=== PATIENT | female | born 1960 | race African-American/Black ===

== ENCOUNTER → 2024-02-12 | Outpatient (CLI) | payer MEDICAID ==
[2024-02-12] MEDS: REGADENOSON 0.4 MG/5 ML SYRG IV ONE ×2 (12:56→13:33)
--- NOTE | 2024-02-14 07:43 | DVHSR ---
APPROVED REPORT Exam: Nuclear Stress Test Indication: Cardiac Clearance Stress Tech: Charisse Palacios Ht: 5 ft 9 in Wt: 130 lbs BSA: 1.72 m2 HR: 49 bpm BP: 132/53 mmHg BMI: 19.19 Rhythm: Sinus Bradycardia Medical History Medical History: Hypothyroidism, gastric bypass, right nephrostomy tube, Asthma Allergies: Ibuprofen Stress Test Details Stress Test: Pharmacologic stress testing performed using 0.4 mg of regadenoson per 5 mL given IV ov er 10 seconds. Reason for pharmacologic stress test: Cardiac Clearance. HR Resting HR: 49 bpmMax Heart Rate (APMHR): 158.332883 bpm Max HR Achieved: 76 bpmTarget HR (85% APMHR): 134.676407 bpm % of APMHR: 48.10 Recovery HR: 57 bpm BP Resting BP: 132/53 mmHg Recovery BP: 90/50 mmHg ECG Resting ECG: Sinus Bradycardia Clinical Reason for Termination: Completed protocol Nurse Comments Received patient from Nuclear Medicine. Patient is A&O x4 and on RA. Patient is connected to environmental monitoring specialist. PIV flushes well. Reviewed POC and patient verbalizes understanding and gives written consen t to test. Lexiscan stress test performed per protocol. pipeline technician administered the Cardiolite. Patie nt tolerated well and vitals returned to baseline. Transferred to Nuclear Medicine with tech in stabl e condition. Stress ECG Conclusion no severe stress induced ischemia moderate CHF with LVEf 37% NM EXAM: Myocardial Perfusion REST/STRESS Imaging Protocol: Rest Tc-99m/Stress Tc-99m 1 day Resting Data Rest SPECT myocardial perfusion imaging was performed in supine position 60 minutes following the int ravenous injection of 10.3 mCi of Tc-99m Sestamibi. Time of rest injection: 1128 Time of rest imagin Administration Route: IV Administration Site: Left Arm Pharmacologic Stress Pharmacologic stress test was performed by injecting Regadenoson 0.4 mg IV push followed by the intra venous injection of 31 mCi of Tc-99m Sestamibi. Time of stress injection: 1250 Time of stress imagin Administration Route: IV Administration Site: Left Arm Gated Stress SPECT was performed 60 minutes after stress injection. The images were gated to evaluate regional wall motion and calculate left ventricular ejection fracti on. Stress only was performed in the Supine position. Nuclear Conclusion ECG Findings: negative for ischemia Nuclear Findings: negative for ischemia Left Ventricular Function: abnormal no severe stress induced ischemia moderate CHF with LVEf 37%
== END | disposition home or self-care (01) ==
LOC: XYW 10:32
PROVIDERS: ATTEND Internal Medicine
DX: Z01.810 Encounter for preprocedural cardiovascular examination (principal); R00.1 Bradycardia, unspecified; E03.9 Hypothyroidism, unspecified; J45.909 Unspecified asthma, uncomplicated; Z88.6 Allergy status to analgesic agent; Z98.84 Bariatric surgery status
CPT/HCPCS: 78452; 93017; A9500; J2785